=== PATIENT | female | born 2000 | race Caucasian/White ===

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

== ENCOUNTER 2021-03-27 14:16 | Emergency (ER) | payer BC ==
[~2021-03-27] VITALS: Ht 170.2 cm; Wt 84.1 kg
[~2021-03-27 14:16] MED LIST: BIRTH CONTROL; PREDNISONE20 MG PO; ZITHROMAX Z PA250 MG PO
[2021-03-27 14:36] VITALS: BP 126/79; TEMP 99.3
[2021-03-27] MEDS ORDERED: TAMIFLU 75MG75 MG PO ×2 (16:33)
[2021-03-27] MEDS ORDERED: ZOFRAN ODT4 MG PO (17:11)
[2021-03-27 17:49] VITALS: PULSE 94
[2021-03-28] MEDS ORDERED: TAMIFLU 75MG75 MG PO (18:10)
== END 2021-03-27 17:50 | disposition home or self-care (01) ==
LOC: COL.ER 14:16
DX: J10.1 Influenza due to other identified influenza virus with other respiratory manifestations (principal); Z20.822 Contact with and (suspected) exposure to COVID-19; Z87.891 Personal history of nicotine dependence
CPT/HCPCS: J1885; J2405; J7030

== ENCOUNTER 2021-05-27 00:33 | Emergency (ER) | payer BC ==
[~2021-05-27] VITALS: Ht 170.2 cm; Wt 61.4 kg
[~2021-05-27 00:33] MED LIST changes: +TAMIFLU 75MG75 MG PO; +ZOFRAN ODT4 MG PO
[2021-05-27 00:37] VITALS: TEMP 97.9
[2021-05-27 02:40] VITALS: BP 129/72; PULSE 88
== END 2021-05-27 02:41 | disposition home or self-care (01) ==
LOC: COL.ER 00:33
DX: S06.0X9A Concussion with loss of consciousness of unspecified duration, initial encounter (principal); S01.01XA Laceration without foreign body of scalp, initial encounter; F10.129 Alcohol abuse with intoxication, unspecified; R40.2410 Glasgow coma scale score 13-15, unspecified time; W08.XXXA Fall from other furniture, initial encounter; W22.8XXA Striking against or struck by other objects, initial encounter
CPT/HCPCS: J2405; J7030